=== PATIENT | male | born 1950 | race Caucasian/White ===

== ENCOUNTER 2016-09-22 17:29 | Emergency (ER) | payer MEDICARE ==
[~2016-09-22] VITALS: Ht 175.3 cm; Wt 91.4 kg
[2016-09-22 17:35] VITALS: BP 156/85; PULSE 97; RESP 18; TEMP 98.7; O2SAT 97
[2016-09-22] MEDS ORDERED: LISI2.5T3 PO (18:03)
[2016-09-22] MEDS ORDERED: HYDROmorphone HCL PF 1 MG/ML VIAL IV PUSH ONE (18:15)
[2016-09-22] MEDS ORDERED: ONDANSETRON HCL 4 MG/2 ML VIAL IV PUSH ONE (18:15)
--- NOTE | 2016-09-22 18:24 | PD ---
HPI Chief Complaint: Back/ Neck Pain or Injury Time Seen by Provider: 18:14 Travel History International Travel<30 days: No Contact w/Intl Traveler<30days: No Traveled to known affect area: No History of Present Illness HPI 65-year-old male patient presents to the ER today because he states that he had fallen and hit his neck area several days ago, was seen at urgent care today because he states that the pain is ongoing and hurts every time he tries to move his neck. His pain is currently rated a 9 out of 10. Urgent care did an x -ray and it showed what appears to be fractures at C3 and C4. They had sent him in for a CAT scan for further evaluation. Patient denies other issues or injuries. He reports no neurological symptoms. Modifying Factors: None Associated Signs & Symptoms: Fall, neck injury, possible cervical fractures Risk Factors: None PFSH Past Medical History Diminished Hearing: No Hypertension: Yes Tetanus Vaccination: > 5 Years Influenza Vaccination: No ?: Not Past Surgical History Other Surgery: Yes (neck) Social History Alcohol Use: Yes (occ) Tobacco Use: Yes (e cigs, quit cigs 9 months ago ) Substance Use: No Allergies-Medications (Allergen,Severity, Reaction): Coded Allergies: No Known Allergies (Unverified , 09/22/16) Reported Meds & Prescriptions Reported Meds & Active Scripts Active Reported Lisinopril 2.5 Mg Tab 2.5 Mg PO DAILY Review of Systems Except as stated in HPI: all other systems reviewed are Neg Physical Exam Narrative GENERAL: Well-developed elderly white male patient currently in moderate distress. Awake, alert, oriented 3. SKIN: Focused skin assessment warm/dry. HEAD: Atraumatic. Normocephalic. EYES: Pupils equal and round. No scleral icterus. No injection or drainage. ENT: No nasal bleeding or discharge. Mucous membranes pink and moist. NECK: Trachea midline. No JVD. Notable for neck stiffness. Tender to palpation along the midline C-spine on the upper neck. No obvious deformities identified. CARDIOVASCULAR: Regular rate and rhythm. No murmur appreciated. RESPIRATORY: No accessory muscle use. Clear to auscultation. Breath sounds equal bilaterally. GASTROINTESTINAL: Abdomen soft, non-tender, nondistended. Hepatic and splenic margins not palpable. MUSCULOSKELETAL: No obvious deformities. No clubbing. No cyanosis. No edema. NEUROLOGICAL: Awake and alert. No obvious cranial nerve deficits. Motor grossly within normal limits. Normal speech. PSYCHIATRIC: Appropriate mood and affect; insight and judgment normal. Data Data Last Documented VS Vital Signs Date Time Temp Pulse Resp B/P Pulse Ox O2 Delivery O2 Flow Rate FiO2 09/22/16 17:35 98.7 97 18 156/85 97 Orders Complete Blood Count With Diff (09/22/16 18:14) Basic Metabolic Panel (Bmp) (09/22/16 18:14) Ct Cerv Spine W/O Contrast (09/22/16 18:14) Apply Cervical Collar (09/22/16 18:14) Hydromorphone Pf Inj (Dilaudid Pf Inj) (09/22/16 18:15) Ondansetron Inj (Zofran Inj) (09/22/16 18:15) Ct Brain W/O Iv Contrast(Rout) (09/22/16 18:19) Labs Laboratory Tests Test 09/22/16 16:20 White Blood Count 9.4 TH/MM3 Red Blood Count 4.55 MIL/MM3 Hemoglobin 14.8 GM/DL Hematocrit 43.2 % Mean Corpuscular Volume 94.9 FL Mean Corpuscular Hemoglobin 32.6 PG Mean Corpuscular Hemoglobin 34.4 % Concent Red Cell Distribution Width 13.4 % Platelet Count 280 TH/MM3 Mean Platelet Volume 7.8 FL Neutrophils (%) (Auto) 64.5 % Lymphocytes (%) (Auto) 17.0 % Monocytes (%) (Auto) 6.3 % Eosinophils (%) (Auto) 10.4 % Basophils (%) (Auto) 1.8 % Neutrophils # (Auto) 6.0 TH/MM3 Lymphocytes # (Auto) 1.6 TH/MM3 Monocytes # (Auto) 0.6 TH/MM3 Eosinophils # (Auto) 1.0 TH/MM3 Basophils # (Auto) 0.2 TH/MM3 CBC Comment DIFF FINAL Differential Comment MDM Medical Decision Making Medical Screen Exam Complete: Yes Emergency Medical Condition: Yes Medical Record Reviewed: Yes Interpretation(s) Laboratory Tests Test 09/22/16 16:20 Eosinophils (%) (Auto) 10.4 % (0.0-4.0) Eosinophils # (Auto) 1.0 TH/MM3 (0-0.4) Differential Diagnosis Neck injury/fracture Narrative Course CAT scan was ordered for the patient for further evaluation of C-spine. He was given pain medications and nausea medication. Physician Communication Physician Communication Case is signed out to Dr. Villatoro at [address] findings. Disposition based on CT. Diagnosis Primary Impression: Injury of cervical spine Condition: Stable Leslie Mata MD Sep 22, 2016 18:24
[2016-09-22 18:34] LABS: BASOPHIL # 0.2 TH/MM3 (0-0.2); BASOPHIL % 1.8 % (0.0-2.0); EOSINOPHIL % 10.4 % (0.0-4.0); HEMATOCRIT 43.2 % (39.0-51.0); HEMO FLAGS DIFF FINAL; LYMPHOCYTE # 1.6 TH/MM3 (1.0-4.8); MEAN CELL VOLUME 94.9 FL (80.0-100.0); MEAN CORPUSCULAR HEMOGLOBIN 32.6 PG (27.0-34.0); MEAN CORPUSCULAR HGB CONC 34.4 % (32.0-36.0); MONO % 6.3 % (0.0-8.0); NEUT % 64.5 % (16.0-70.0); PLATELET COUNT 280 TH/MM3 (150-450); RED BLOOD COUNT 4.55 MIL/MM3 (4.50-5.90); RED CELL DISTRIBUTION WIDTH 13.4 % (11.6-17.2); WHITE BLOOD COUNT 9.4 TH/MM3 (4.0-11.0)
[2016-09-22 19:04] LABS: POTASSIUM 4.1 MEQ/L (3.5-5.1)
[2016-09-22 19:07] LABS: BICARBONATE 26.9 MEQ/L (21.0-32.0)
--- NOTE | 2016-09-22 19:37 | RADRPT ---
EXAM DATE/TIME: 09/22/2016 19:08 [facility] COMPARISON: No previous studies available for comparison. INDICATIONS : Trauma two days ago. Patient fell and hit head. RADIATION DOSE: 65.89 CTDIvol (mGy) MEDICAL HISTORY : Hypertension. SURGICAL HISTORY : Fusion, cervical. ENCOUNTER: Initial ACUITY: 2 days PAIN SCALE: 8/10 LOCATION: cranial TECHNIQUE: Multiple contiguous axial images were obtained of the head. Using automated exposure control and adj ustment of the mA and/or kV according to patient size, radiation dose was kept as low as reasonably a chievable to obtain optimal diagnostic quality images. DICOM format image data is available electro nically for review and comparison. FINDINGS: CEREBRUM: The ventricles are normal for age. No evidence of midline shift, mass lesion, hemorrhage or acute in farction. No extra-axial fluid collections are seen. POSTERIOR FOSSA: The cerebellum and brainstem are intact. The 4th ventricle is midline. The cerebellopontine angle i s unremarkable. EXTRACRANIAL: The visualized portion of the orbits is intact. SKULL: The calvaria is intact. No evidence of skull fracture. CONCLUSION: No acute intracranial findings. Jose Hancock MD on September 22, 2016 at 19:33 Board Certified Radiologist. This report was verified electronically.
--- NOTE | 2016-09-22 19:45 | RADRPT ---
EXAM DATE/TIME: 09/22/2016 19:08 [facility] COMPARISON: No previous studies available for comparison. INDICATIONS : Trauma. Patient fell and hit head two days ago. Pain in neck now. RADIATION DOSE: 26.23 CTDIvol (mGy) MEDICAL HISTORY : Hypertension. SURGICAL HISTORY : Fusion, cervical. ENCOUNTER: Initial ACUITY: 2 days PAIN SCALE: 9/10 LOCATION: Bilateral neck TECHNIQUE: Volumetric scanning of the cervical spine was performed. Multiplanar reconstructions in the sagittal, coronal and oblique axial planes were performed. Using automated exposure control and adjustment o f the mA and/or kV according to patient size, radiation dose was kept as low as reasonably achievable to obtain optimal diagnostic quality images. DICOM format image data is available electronically f or review and comparison. FINDINGS: VERTEBRAE: Anterior fusion hardware at C7-T1. Anterior bony fusion is seen at C5-6, C6-7, and C7-T1. Large anter ior endplate osteophytes at C4-5. No evidence of fracture. ALIGNMENT: No evidence of subluxation. C2-C3: Bilateral facet arthrosis. No evidence of focal disc protrusion. Central canal normal diameter. Neura l foraminal diameters within normal limits. C3-C4: Severe right-sided facet arthrosis. Severe right neuroforaminal narrowing. Central canal diameter wit hin normal limits. C4-C5: Moderate severity right-sided facet arthrosis. No evidence of focal disc protrusion. Central canal no rmal diameter. Neural foraminal diameters within normal limits. C5-C6: Bony fusion at this level. Broad-based osseous ridge. Minimal central canal narrowing. Mild bilateral neural foraminal narrowing. C6-C7: Broad-based osseous ridge. Moderate bilateral neural foraminal narrowing. Central canal diameter is m inimally narrowed. C7-T1: Surgical hardware in place. Bony fusion at this level. Central canal diameter within normal limits. CONCLUSION: No evidence of fracture. Multilevel degenerative findings. Postsurgical findings a C7-T1. Jose Hancock MD on September 22, 2016 at 19:38 Board Certified Radiologist. This report was verified electronically.
[2016-09-22] MEDS ORDERED: PERC5TAB12 PO (20:05)
--- NOTE | 2016-09-22 20:05 | PD ---
Physical Exam Time Seen by Provider: 19:[address] Tolentino left this patient with me to check the results of the CT of the cervical spine and CT of the brain. Data Data Last Documented VS Vital Signs Date Time Temp Pulse Resp B/P Pulse Ox O2 Delivery O2 Flow Rate FiO2 09/22/16 17:35 98.7 97 18 156/85 97 Orders Complete Blood Count With Diff (09/22/16 18:14) Basic Metabolic Panel (Bmp) (09/22/16 18:14) Ct Cerv Spine W/O Contrast (09/22/16 18:14) Apply Cervical Collar (09/22/16 18:14) Hydromorphone Pf Inj (Dilaudid Pf Inj) (09/22/16 18:15) Ondansetron Inj (Zofran Inj) (09/22/16 18:15) Ct Brain W/O Iv Contrast(Rout) (09/22/16 18:19) Labs Laboratory Tests Test 09/22/16 16:20 White Blood Count 9.4 TH/MM3 Red Blood Count 4.55 MIL/MM3 Hemoglobin 14.8 GM/DL Hematocrit 43.2 % Mean Corpuscular Volume 94.9 FL Mean Corpuscular Hemoglobin 32.6 PG Mean Corpuscular Hemoglobin 34.4 % Concent Red Cell Distribution Width 13.4 % Platelet Count 280 TH/MM3 Mean Platelet Volume 7.8 FL Neutrophils (%) (Auto) 64.5 % Lymphocytes (%) (Auto) 17.0 % Monocytes (%) (Auto) 6.3 % Eosinophils (%) (Auto) 10.4 % Basophils (%) (Auto) 1.8 % Neutrophils # (Auto) 6.0 TH/MM3 Lymphocytes # (Auto) 1.6 TH/MM3 Monocytes # (Auto) 0.6 TH/MM3 Eosinophils # (Auto) 1.0 TH/MM3 Basophils # (Auto) 0.2 TH/MM3 CBC Comment DIFF FINAL Differential Comment Sodium Level 139 MEQ/L Potassium Level 4.1 MEQ/L Chloride Level 104 MEQ/L Carbon Dioxide Level 26.9 MEQ/L Anion Gap 8 MEQ/L Blood Urea Nitrogen 19 MG/DL Creatinine 1.40 MG/DL Estimat Glomerular Filtration 51 ML/MIN Rate Random Glucose 103 MG/DL Calcium Level 9.2 MG/DL [facility] Medical Record Reviewed: Yes Supervised Visit with EDWARD: Yes Interpretation(s) The CT of the brain shows no acute intracranial findings. The CT of the cervical spine shows no evidence of fracture. There is multilevel degenerative findings in postsurgical findings on C7-T1. Differential Diagnosis Fracture C-spine, cervical strain, intracranial bleed, fractured skull Narrative Course The patient has a cervical strain. He will be given Percocet for pain and he is told about a heating pad. He should follow-up with his primary care physician when he gets home. Diagnosis Primary Impression: Cervical strain, acute Additional Instruction: Follow-up with your primary care physician when you get back home. A heating pad is sometimes useful, turn it on its lowest setting an interposed a towel between your skin and the pad to avoid myers. Do not drink alcohol or drive on the Percocet 5. Med/Other Pt SpecificInfo: Prescription(s) given Scripts Oxycodone-Acetaminophen (Percocet)5-325 mg Tab1 Tab PO Q6H PRN (PAIN) #28 TAB Ref 0 Prov:Rob Villatoro MD 09/22/16 Disposition: 01 DISCHARGE HOME Condition: Stable Rob Villatoro MD Sep 22, 2016 20:05
== END 2016-09-22 21:00 | disposition home or self-care (01) ==
LOC: PHED 17:29
DX: S16.1XXA Strain of muscle, fascia and tendon at neck level, initial encounter (principal); I10 Essential (primary) hypertension; W19.XXXA Unspecified fall, initial encounter; Z72.0 Tobacco use
CPT/HCPCS: 70450; 72125; 80048; 85025; 96374; 96375; 99285; J1170; J2405